=== PATIENT | male | born 1935 ===

== ENCOUNTER 2018-03-25 12:17 | Inpatient (IN) | payer MEDICARE ==
[~2018-03-25 12:17] MED LIST: Sodium Bicarbonate 7.5% (0.9 MEQ/ML) 50ML INJ IV ONE
[2018-03-25] MEDS ORDERED: Sodium Chloride 0.9% 1,000 ML IV STA ×2 (12:30→12:54)
[2018-03-25 12:48] LABS: ABG ALLEN TEST YES; ARTERIAL BLOOD GAS HCO3 10.2 mmol/L (21-28); ARTERIAL BLOOD GAS O2 SAT 78.4 % (95-98); ARTERIAL BLOOD GAS PCO2 60 mm/Hg (35-45); ARTERIAL BLOOD GAS PH 6.98 (7.35-7.45); ARTERIAL BLOOD GAS PO2 56 mm/Hg (80-100); ARTERIAL BLOOD GAS TCO2 15.9 mmol/L (22-28)
[2018-03-25 12:48] LABS: BASO % 0.8 % (0.0-2.0); EOS % 0.2 % (0.0-4.0); HEMOGLOBIN 9.1 g/dL (12.0-18.0); LYMPH % 40.1 % (20.0-40.0); MEAN CELL VOLUME 89.2 fl (80.0-94.0); MEAN CORPUSCULAR HEMOGLOBIN 26.2 pg (27.0-31.0); MEAN CORPUSCULAR HGB CONC 29.4 g/dL (33.0-37.0); MEAN PLATELET VOLUME 8.9 fl (7.2-11.7); MONO # 0.2 K/uL (0.0-0.8); MONO % 4.4 % (0.0-10.0); NEUT # 2.8 K/uL (1.8-7.0); NEUT % 54.5 % (50.0-75.0); NRBC % 0.2 % (0.0-0.0); RBC 3.47 Mil/uL (4.40-5.90); RED CELL DISTRIBUTION WIDTH 16.7 % (11.5-14.5); WHITE BLOOD COUNT 5.1 K/uL (4.8-10.8)
[2018-03-25] MEDS ORDERED: Piperacillin/Tazobact 3.375 gm Inj IVPB ONE (12:55)
--- NOTE | 2018-03-25 12:56 | ED PDOC ---
HPI: Cardiac Arrest Time Seen by Provider: 03/25/18 12:20 Chief Complaint (Nursing): Cardiac Arrest Chief Complaint (Provider): Cardiac Arrest History Per: EMS, Family () Reason For Code Blue: Full Arrest Circumstances: Brought To ED By EMS Arrest Witnessed By: Family () CPR Initiated Prior To MD Arrival?: Yes Down-Time Before ACLS: Mins (10) Treatment Initiated Prior To MD Arrival: CPR, Intubation, ACLS Medication Initiation Medications Given Prior To MD Arrival: Epinephrine Additional Complaint(s): 82 year old male with a history of hypertension, cataracts, dementia, cardiac disease and asthma presents to the ED via EMS after he went into sudden cardiac arrest while walking with his about 20 minutes prior to arrival. reports they went out for a walk when he collapsed and became unresponsive. He was down for at least 10 minutes before ACLS protocol was enacted by EMS. On arrival, EMS reports he was hypotensive and bradycardic, had two rounds of epinephrine and was intubated. pt had transient return of spontaneous circulation but then soon lost pulse. Patient was given another round of epi before arrival to the ED. Blood pressure on arrival was 84/60 and circulation was restored prior to arrival. PMD: Dr. Leonel Abel - Initial Findings Mentation: Unresponsive Pulse: Weak Past Medical History Reviewed: Historical Data, Nursing Documentation, Vital Signs - Medical History PMH: Asthma, CAD, HTN Other PMH: cataracts - Surgical History Other surgeries: unknown - Family History Family History: States: Unknown Family Hx - Living Arrangements Living Arrangements: With Family - Social History Ex-Smoker (has not smoked in the last 12 months): Yes (according to quite years ago) Alcohol: None Drugs: Denies - Home Medications Home Medications: Ambulatory Orders Medication Instructions Recorded Amiodarone [Cordarone] 200 mg PO DAILY 03/25/18 Clopidogrel [Plavix] 75 mg PO DAILY 03/25/18 Isosorbide Mononitrate [Imdur] 60 mg PO DAILY 03/25/18 Losartan [Cozaar] 100 mg PO DAILY 03/25/18 Memantine [Namenda] 10 mg PO Q12 03/25/18 Metoprolol Tartrate [Lopressor] 50 mg PO Q12 03/25/18 Oxybutynin [Ditropan Tab] 5 mg PO DAILY 11/08/18 PrednisoLONE 1% [Pred Forte 1% 1 drop LEFTEYE DAILY 03/25/18 Opht Susp] - Allergies Allergies/Adverse Reactions: Allergies Allergy/AdvReac Type Severity Reaction Status Date / Time Unobtainable Allergy Verified 03/25/18 12:19 Review of Systems ROS Statement: Except As Marked, All Systems Reviewed And Found Negative Review Of Systems: ROS cannot be obtained secondary to pt's inabilty to answer questions. Physical Exam - Reviewed Nursing Documentation Reviewed: Yes Vital Signs Reviewed: Yes - Physical Exam Appears: Positive for: No Acute Distress (intubated, with ABDULAZIZ machine off (had been on previously for compressions)) Head Exam: Positive for: ATRAUMATIC, NORMAL INSPECTION, NORMOCEPHALIC Skin: Positive for: Normal Color, Warm, Dry Eye Exam: Positive for: Normal appearance (surgical - prior cataracts). Negative for: Nystagmus ENT: Positive for: Normal ENT Inspection, Other (ETT in place at around 25 at lip) Cardiovascular/Chest: Positive for: Regular Rate, Rhythm Respiratory: Positive for: Normal Breath Sounds (mechanical, ETT in place, bilateral breath sounds). Negative for: Rales, Rhonchi, Stridor, Wheezing Gastrointestinal/Abdominal: Positive for: Normal Exam Extremity: Positive for: Other (pt not spontaneous movement. No response to verbal or painful stimuli.) Neurologic/Psych: Positive for: Other (pt not responsive ). Negative for: Alert, Oriented - Laboratory Results Result Diagrams: 03/25/18 12:40 03/25/18 12:40 - ECG ECG: Positive for: Interpreted By Me, Viewed By Me ECG Rhythm: Positive for: Nonspecific Changes (possible AF 99 bpm) Interpretation Of Abn EKG: Wide QRS complex, left axis deviation, ST depression V5-V6 - Radiology X-Ray: Interpreted by Me, Viewed By Me, Read By Radiologist X-Ray Interpretation: Infiltrates (possible) - Critical Care Total Time (In Min): 60 Documented Critical Care: Time excludes all time spent performint seperately billable procedures Medical Decision Making Medical Decision Making: s/p Cardiac arrest Three epinephrines were given in the field prior to arrival to the ED at 12:19 On arrival, pt placed on school lunch monitor, and accucheck and EKG done. Pt noted to have no pulse. CPR initiated with ABDULAZIZ machine. 12:20 --Compressions started. NS Bolus started. Accucheck 141. --Epinephrine and bicarb (1 amp) given 12:30 --;labs and Blood cx drawn --ABG 12:38 --Pulse at 48; blood pressure 72/45. atropine given. ivf given. central line initiated in R femoral under emergency conditions so no consent obtained. however verbal consent discussed with afterwards. she is agreeable to it. 12:41 --Atropine given 12:42 --Epinephrine given again as still no pulse; Rocha catheter placed with no urine output. 12:44 --Levophed drip 5 mcg/min (4mg in 250 mls) ordered --Head CT ordered 12:47 --Compressions continued, blood pressure 209/130, temperature 95.3 - bear huggers ordered 12:50 --Lactic acid is 14.4 and pH is 6.98. pt acidotic. Code Sepsis enacted. 12:53 --Vancomycin 1 gm in NS 250 ml and zosyn ordered --ABG 13:10 --Pulse elevated to normal range in 70-80s and blood pressure also elevated. awaiting cT head report. --Did not started Levophed drip because improving vitals. also ordered amiodarone given possible wide complex on EKG and noted that its one of patients regular meds. 13:25 --Anion gap is 20, sugar elevated, one dose insulin ordered. spoke w/ at bedside - she is aware of pts poor clinical status at this time. answered questions. she provided some of medical history as above. 13:54 CT Head FINDINGS: HEMORRHAGE: No intracranial hemorrhage. BRAIN: No intracranial mass. Moderate periventricular white matter ischemic change with patchy and confluent deep/subcortical white matter lucency consistent with microvascular white matter ischemic change. No evidence of acute infarct. 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 There is a lacunar infarct of the left thalamus/internal capsule. VENTRICLES: Unremarkable. No hydrocephalus. CALVARIUM: Unremarkable. PARANASAL SINUSES: Minimal chronic ethmoid and bilateral maxillary sinusitis. MASTOID AIR CELLS: Unremarkable as visualized. No inflammatory changes. OTHER FINDINGS: None. IMPRESSION: No intracranial mass, hemorrhage or evidence of acute infarct. 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 Chronic white matter ischemic change. 13:30 Chest x-ray FINDINGS: LUNGS: Diffuse opacity in the right lung common nonspecific. Infectious versus atypical pulmonary edema. No definite left-sided infiltrate. PLEURA: No significant pleural effusion identified, no pneumothorax apparent. CARDIOVASCULAR: Normal heart size. Endotracheal tube noted with tip approximately 1.6 cm above the tracheal wilbur. Consideration should be given to repositioning the endotracheal tube tip proximally. No atherosclerotic calcification of the thoracic aorta. OSSEOUS STRUCTURES: No significant abnormalities. VISUALIZED UPPER ABDOMEN: Normal. OTHER FINDINGS: None. IMPRESSION: Diffuse right-sided pulmonary opacity, nonspecific. Possible pneumonia. Endotracheal tube tip approximately 1.6 cm above the tracheal wilbur. Consideration should be given to more proximal positioning of the ET tube tip. respiratory called to adjust the ETT. discussed case with intensivits Dr. Romano accepts case to icu also discussed with DR Carrion who covers dr fisher patients, who accepts patient Scribe Attestation: Documented by Robyn Palumbo acting as a scribe for Francois Pride MD Provider Scribe Attestation: All medical record entries made by the Scribe were at my direction and personally dictated by me. I have reviewed the chart and agree that the record accurately reflects my personal performance of the history, physical exam, medical decision making, and the department course for this patient. I have also personally directed, reviewed, and agree with the discharge instructions and disposition. Disposition - Clinical Impression Clinical Impression: Cardiac arrest - Patient ED Disposition Is Patient to be Admitted: Yes - Disposition Disposition Time: 13:30 Condition: SERIOUS
[2018-03-25] MEDS ORDERED: Vancomycin 1 g Inj ONE (12:57)
[2018-03-25 12:58] LABS: CALCIUM 7.8 mg/dL (8.4-10.2)
[2018-03-25 13:09] LABS: TROPONIN I 0.045 ng/mL (0.00-0.120)
[2018-03-25] MEDS ORDERED: Amiodarone 900 MG in Dextrose 5% In Water 500 ML IV SCH (13:15)
[2018-03-25] MEDS ORDERED: Insulin Regular 100 units/ml SC STA (13:23)
[2018-03-25] MEDS ORDERED: Amiodarone 450 MG in Sodium Chloride 0.9% 250 ML IV SCH (13:30)
--- NOTE | 2018-03-25 13:35 | RAD ---
Date of service: 03/25/2018 HISTORY: cough COMPARISON: No prior. FINDINGS: LUNGS: Diffuse opacity in the right lung common nonspecific. Infectious versus atypical pulmonary edema. No definite left-sided infiltrate. PLEURA: No significant pleural effusion identified, no pneumothorax apparent. CARDIOVASCULAR: Normal heart size. Endotracheal tube noted with tip approximately 1.6 cm above the tracheal wilbur. Consideration should be given to repositioning the endotracheal tube tip proximally. No atherosclerotic calcification of the thoracic aorta. OSSEOUS STRUCTURES: No significant abnormalities. VISUALIZED UPPER ABDOMEN: Normal. OTHER FINDINGS: None. IMPRESSION: Diffuse right-sided pulmonary opacity, nonspecific. Possible pneumonia. Endotracheal tube tip approximately 1.6 cm above the tracheal wilbur. Consideration should be given to more proximal positioning of the ET tube tip.
[2018-03-25 13:55] LABS: INR 1.5; PROTHROMBIN TIME 17.1 Seconds (9.8-13.1)
[2018-03-25 13:58] LABS: PARTIAL THROMBOPLASTIN TIME 29.8 Seconds (25.6-37.1)
--- NOTE | 2018-03-25 13:58 | CT ---
Date of service: 03/25/2018 PROCEDURE: CT HEAD WITHOUT CONTRAST. HISTORY: r/o bleed COMPARISON: None available. TECHNIQUE: Axial computed tomography images were obtained through the head/brain without intravenous contrast. Radiation dose: Total exam DLP = 1025.82 mGy-cm. This CT exam was performed using one or more of the following dose reduction techniques: Automated exposure control, adjustment of the mA and/or kV according to patient size, and/or use of iterative reconstruction technique. FINDINGS: HEMORRHAGE: No intracranial hemorrhage. BRAIN: No intracranial mass. Moderate periventricular white matter ischemic change with patchy and confluent deep/subcortical white matter lucency consistent with microvascular white matter ischemic change. No evidence of acute infarct. 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 There is a lacunar infarct of the left thalamus/internal capsule. VENTRICLES: Unremarkable. No hydrocephalus. CALVARIUM: Unremarkable. PARANASAL SINUSES: Minimal chronic ethmoid and bilateral maxillary sinusitis. MASTOID AIR CELLS: Unremarkable as visualized. No inflammatory changes. OTHER FINDINGS: None. IMPRESSION: No intracranial mass, hemorrhage or evidence of acute infarct. 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 Chronic white matter ischemic change.
[2018-03-25 14:35] LABS: SQUAMOUS EPITHIAL 5 /hpf (0-5)
[2018-03-25 14:43] LABS: URINE BILIRUBIN NEGATIVE (NEGATIVE); URINE BLOOD LARGE (NEGATIVE); URINE CLARITY CLOUDY (Clear); URINE COLOR AMBER (YELLOW); URINE GLUCOSE (UA) NEG (Normal); URINE LEUKOCYTE ESTERASE NEG Leu/uL (Negative); URINE PROTEIN 100 mg/dL (NEGATIVE); URINE UROBILINOGEN 0.2-1.0 mg/dL (0.2-1.0)
--- NOTE | 2018-03-25 14:46 | PCM.PROC ---
Procedures Attestation:: I certify that I have explained the specified Operation(s) or Procedure(s), risks, benefits and reasonable alternatives to the Patient and/or other person responsible. The opportunity was given to ask questions and all questions answered - Central Line Placement Right Femoral Triple Lumen Catheter Aseptic technique was employed throughout the procedure: Hand Hygiene done prior to procedure, Full sterile barriers (mask, hair cover, sterile gown, sterile gloves), Full body sterile drape, Chloraprep Antiseptic: 2 minute prep for Femoral CVP Time Out Performed: No Pt. Placed on Pulse Ox Monitor: Yes Central Line Prep: Povidone-Iodine 1% Ultrasound Used for Placement: No Central Line Lumen Inserted: triple Central Line Length: 20 cm Post Procedure: Sutured in Place, Good Blood Return, All Ports Aspirated, Flushed, Capped, Sterile Dressing Applied Secured by: Suture Post procedure dressing: Clear vapor permeable, Chlorhexidine disc (Biopatch) Post Procedure X-Ray: Yes Patient Tolerated Procedure: No Complications Immediate Complications: None Additional Comments: right femoral central line placed in emergent conditions during cardiac arrest for hypotension/bradycardia.
--- NOTE | 2018-03-25 14:56 | CP.CCUPN ---
CCU Subjective - Physician Review Subjective (Free Text): Discussed with ER MD. No history / HPI obtainable from patient- intubated and comatose. 82M with h/o HTN, asthma, Dementia, walking with , sat down, then sudden fall to the ground and was unresponsive. Down time approx. 10 min, EMS called, states down time may have been longer at up to 20 minutes; intubated as part of resuscitation attempts. Multiple doses of Epinephrine given before restorationist of a bradycardic rhythm. Hypotensive on arrival to ER, no palpable pulses noted and resuscitation resumed, more Epi given, bicarbonate given, and ROSC achieved, placed briefly on Norepi drip, later stopped due to stable self- MAP maintenance. Two liter IVF challenge given as well for oliguria, empiric doses of Vanco / Zosyn given. He is comatose post-resuscitation. Code Sepsis called for elevated lactate. Upon arrival to ICU, facial myoclonic movements observed with bilat eye opening upon any stimulation. Other vitals and I/O's reviewed. T 95F Rectally, 180/84, 68, breathing 18/18 on AC mode, no vent triggering noted. ROS: No other pertinent negs or positives on 10+ system review obtainable due to coma and intubated state. Allergies: Unknown Home Meds: Amiodarone PMSFH: All other Nursing and physician documentation reviewed to date; no new p ertinent info noted relevant to current medical problems. EXAM- HEENT: no icterus, no gaze preference, Pupils 2 mm bilat and not reactive, no gag or carinal reflex. Orally intubated #7.5mm ETT in place. NECK: No JVD visible, supple, carotids equal upstroke bilat/no bruit CHEST: bilateral rhonchi all jarrell, no wheezes audible HEART: regular, distant tachy S1S2, no rub, + 2/6 apical systolic m. ABD: soft, no focal tenderness, no guarding, no organomegaly, BS hypoactive. EXT: +3 edema, no calf tenderness or palpable cords, distal pulses intact and symmetrical. NEURO: flaccid x 4 extremities, GCS = 3T, opens eyes to pain stimuli and minimal withdrawal of hands to pain. No other purposeful interaction. SKIN: no rashes, cool and dry LABS: WBC= 5.1 HGB= 9.1 PLTs= 153K Na= 143 K= 3.8 LG=315 HCO3= 13 BUN/Cr= 27/2.0 BS= 141 6.98 / 60/ 56 Lactate= 14.4 CXR: ETT tip position near wilbur, R lung haziness worse than L, possible left hilar infiltrate (my interp). CT Brain result reviewed; no acute pathology. EKG: Sinus 99/min, LAD, T inversions I, L, ST depressions V4-6 (my interp). IMPRESSION / MAJOR PROBLEMS NOW: 1. S/p Resuscitation from Cardiac Arrest, on MV support: r/o AMI 2. Anoxic Encephalopathy post-resuscitation 3. Azotemia / Dehydration, r/o CKD, ATN 4. No clinical evidence of any Severe Sepsis causing current level of Lactic Acidosis. PLAN: 1. Given prolonged downtime, not a candidate for therapeutic hypothermia. 2. Check repeat ABG, serial Lactates till normalized. 3. ECHO, serial Trops, EKGs. 4. Neurochecks, Seizure precautions, consider formal Neurology eval. Repeat CT Brain imaging after 24H. 5. IVF challenges if still oliguric. Urine Na, serial BUN/Cr. 6. Empric abx coverage started in ER; coverage for possible Aspiration pna. 7. No Advance Directives known, continue full Code resuscitation status. 8. Notify [employer] given low GCS.
--- NOTE | 2018-03-25 15:04 | PCM.PROC ---
Procedures Attestation:: I certify that I have explained the specified Operation(s) or Procedure(s), risks, benefits and reasonable alternatives to the Patient and/or other person responsible. The opportunity was given to ask questions and all questions answered - Intubation Time Out Performed: Yes Sedative: None Assist Device Used: Bougie ET Tube Size: 8.0 ET Tube Secured at Depth: 21 ET Tube Secured Locarion: Teeth ET Tube Placement Confirmation: Breath Sounds Equal Bilaterally, No Breath Sounds Over Epigastrum, Confirmation w/Capnometry Patient Tolerated Procedure: Well Procedure Immediate Complications: None Additional comments: Patient required re-intubation due to loss of exhaled TV and expelled air coming from the mouth. SPo2 at 90% on 100% oxygen. Additional air placed via ETT cuff balloon without effect. Using Bougie device, existing 7.5mm ETT removed and new #8.0mm ETT with subglottic suction capability passed via Bougie into position and secured at 21 cm mike at the teeth after confirming position with bilat BS on auscultation and ETCO2 color change. Patient connected back to MV and full TV of 500ml retrurned via exhalation, SPo2 at 100%. ABG obtained.
--- NOTE | 2018-03-25 16:20 | CARD ---
APPROVED REPORT Date of service: 03/25/2018 EKG Measurement Heart [id number] <Conclusion> Normal sinus rhythm. Baseline artifact. Left axis deviation Nonspecific intraventricular block ST depression, consider lateral ischemia Abnormal ECG
[2018-03-25] MEDS ORDERED: Influenza Vaccine (5 YR UP)/PF 60 MCG/0.5 ML SYR IM ONE (17:00)
[2018-03-25] MEDS ORDERED: Pneumococcal 23-Valent Vaccine IM ONE (17:00)
[2018-03-25 21:08] LABS: ABG ALLEN TEST YES; ARTERIAL BLOOD GAS HCO3 24.1 mmol/L (21-28); ARTERIAL BLOOD GAS HEMOGLOBIN 11.3 g/dL (11.7-17.4); ARTERIAL BLOOD GAS O2 CAPACITY 15.6 mL/dL (16-24); ARTERIAL BLOOD GAS O2 CONTENT 15.6 ML/dL (15-23); ARTERIAL BLOOD GAS O2 SAT 99.9 % (95-98); ARTERIAL BLOOD GAS PCO2 29 mm/Hg (35-45); ARTERIAL BLOOD GAS PH 7.48 (7.35-7.45); ARTERIAL BLOOD GAS PO2 132 mm/Hg (80-100); ARTERIAL BLOOD GAS TCO2 22.5 mmol/L (22-28)
[2018-03-25 21:25] LABS: ABG ALLEN TEST YES; ARTERIAL BLOOD GAS HCO3 18.3 mmol/L (21-28); ARTERIAL BLOOD GAS O2 SAT 98.5 % (95-98); ARTERIAL BLOOD GAS PCO2 42 mm/Hg (35-45); ARTERIAL BLOOD GAS PH 7.25 (7.35-7.45); ARTERIAL BLOOD GAS PO2 94 mm/Hg (80-100); ARTERIAL BLOOD GAS TCO2 19.7 mmol/L (22-28)
[2018-03-25] MEDS: Acetaminophen 650mg/20.3ml solution UD PO PRN (22:11)
[2018-03-26 05:30] LABS: BASO % 0.1 % (0.0-2.0); HEMOGLOBIN 10.6 g/dL (12.0-18.0); LYMPH # 0.6 K/uL (1.0-4.3); LYMPH % 7.4 % (20.0-40.0); MEAN CELL VOLUME 83.1 fl (80.0-94.0); MEAN CORPUSCULAR HEMOGLOBIN 26.5 pg (27.0-31.0); MEAN CORPUSCULAR HGB CONC 31.9 g/dL (33.0-37.0); MEAN PLATELET VOLUME 8.7 fl (7.2-11.7); MONO # 0.7 K/uL (0.0-0.8); NEUT % 84.5 % (50.0-75.0); NRBC % 0.2 % (0.0-0.0); PLATELET COUNT 180 K/uL (130-400); RBC 3.98 Mil/uL (4.40-5.90); RED CELL DISTRIBUTION WIDTH 15.4 % (11.5-14.5); WHITE BLOOD COUNT 8.3 K/uL (4.8-10.8)
[2018-03-26 05:34] LABS: ABG ALLEN TEST YES; ARTERIAL BLOOD GAS O2 SAT 100.3 % (95-98); ARTERIAL BLOOD GAS PCO2 31 mm/Hg (35-45); ARTERIAL BLOOD GAS PH 7.46 (7.35-7.45); ARTERIAL BLOOD GAS PO2 239 mm/Hg (80-100)
[2018-03-26 05:39] LABS: INR 1.4; PROTHROMBIN TIME 15.5 Seconds (9.8-13.1)
[2018-03-26 05:41] LABS: ALBUMIN 3.4 g/dL (3.5-5.0); CALCIUM 8.2 mg/dL (8.4-10.2)
[2018-03-26 05:42] LABS: PARTIAL THROMBOPLASTIN TIME 31.4 Seconds (25.6-37.1)
[2018-03-26 05:51] LABS: TROPONIN I 0.487 ng/mL (0.00-0.120)
[2018-03-26 06:16] LABS: BANDS 2 % (0-2); LYMPHOCYTE 6 % (20-50); MONOCYTE 3 % (0-10); NEUTROPHIL 87 % (42-75); PLATELET ESTIMATE NORMAL (NORMAL); REACTIVE LYMPHOCYTES 2 % (0-0); TOTAL CELLS COUNTED 100
[2018-03-26 06:17] LABS: HYPOCHROMIC SLIGHT; OVALOCYTES SLIGHT; POIKILOCYTOSIS SLIGHT
--- NOTE | 2018-03-26 08:17 | CP.PCM.HP ---
<Jose Alejandro Watson - Last Filed: 03/26/18 08:02> History of Present Illness - History of Present Illness History of Present Illness: 82 y/o M with a PMHx of HTN, dementia, CAD and asthma was admitted for evaluation and management of S/P resuscitation from cardiac arrest. Pt was walking outside with , then he collapse and became unresponsive. ACLS was started ~10-20 minutes after episode by EMS and then brought to ED. At ED, multiple doses of epinephrine, atropine, IV fluids and bicarbonate were given. Central IV line was obtained and pt was intubated, once ROSC and stabilized pt was transferred to ICU. --Today, pt was seen and examined by bedside with Dr Carrion. Pt is intubated, not responsive to verbal commands or tactile stimulation, seems to respond to pain, right eye covered, left eye turned upward. PMD: Dr. Leonel Abel --> Head CT: with NO intra-cranial mass, hemorrhage or acute infarct. --> CXR: R pulmonary opacity, possibly pneumonia. --> EKG: Abnormal, possibly lateral infarct. Present on Admission - Present on Admission Any Indicators Present on Admission: No Review of Systems - Review of Systems Systems not reviewed;Unavailable: Respiratory Distress, Intubated Past Patient History - Past Social History Smoking Status: Former Smoker - CARDIAC Hx Hypertension: Yes - PULMONARY Hx Asthma: Yes - NEUROLOGICAL Hx Neurological Disorder: Yes - HEENT Hx HEENT Problems: No - RENAL Hx Chronic Kidney Disease: No - ENDOCRINE/METABOLIC Hx Endocrine Disorders: No - HEMATOLOGICAL/ONCOLOGICAL Hx Blood Disorders: No Hx AIDS: No Hx Human Immunodeficiency Virus (HIV): No - INTEGUMENTARY Hx Dermatological Problems: No - MUSCULOSKELETAL/RHEUMATOLOGICAL Hx Musculoskeletal Disorders: No Hx Falls: No - GASTROINTESTINAL Hx Gastritis: Yes - GENITOURINARY/GYNECOLOGICAL Hx Genitourinary Disorders: No - PSYCHIATRIC Hx Psychophysiologic Disorder: No Hx Substance Use: No - SURGICAL HISTORY Hx Surgeries: No - ANESTHESIA Hx Anesthesia: No Meds Allergies/Adverse Reactions: Allergies Allergy/AdvReac Type Severity Reaction Status Date / Time No Known Allergies Allergy Verified 03/25/18 15:10 Physical Exam - Constitutional Appears: Chronically Ill - Head Exam Head Exam: ATRAUMATIC - Eye Exam Eye Exam: absent: EOMI - ENT Exam ENT Exam: Mucous Membranes Dry - Respiratory Exam Additional comments: intubated. - Cardiovascular Exam Cardiovascular Exam: +S1, +S2 - GI/Abdominal Exam GI & Abdominal Exam: Soft. absent: Distended, Tenderness - Neurological Exam Neurological exam: Altered Results - Vital Signs Recent Vital Signs: Last Vital Signs Temp 100.4 F H 03/26/18 07:57 Pulse 72 03/26/18 07:57 Resp 18 03/26/18 07:57 BP 151/72 H 03/26/18 07:57 Pulse Ox 100 03/26/18 07:57 - Labs Result Diagrams: 03/26/18 04:40 03/26/18 04:40 Labs: Laboratory Results - last 24 hr 03/25/18 03/25/18 03/25/18 12:21 12:40 12:40 WBC 5.1 RBC 3.47 L Hgb 9.1 L Hct 31.0 L MCV 89.2 MCH 26.2 L MCHC 29.4 L RDW 16.7 H Plt Count 153 MPV 8.9 Neut % (Auto) 54.5 Lymph % (Auto) 40.1 H Bailey % (Auto) 4.4 Eos % (Auto) 0.2 Baso % (Auto) 0.8 Neut # (Auto) 2.8 Lymph # (Auto) 2.0 Bailey # (Auto) 0.2 Eos # (Auto) 0.0 Baso # (Auto) 0.0 Neutrophils % (Manual) Band Neutrophils % Lymphocytes % (Manual) Reactive Lymphs % Monocytes % (Manual) Platelet Estimate Hypochromasia (manual) Poikilocytosis (manual Ovalocytes PT INR APTT pCO2 pO2 HCO3 ABG pH ABG Total CO2 ABG O2 Saturation ABG O2 Content ABG Base Excess ABG Hemoglobin ABG Carboxyhemoglobin POC ABG HHb (Measured) ABG Methemoglobin ABG O2 Capacity Shahram Test ABG Potassium A-a O2 Difference Hgb O2 Saturation Glucose Lactate Vent Mode Mechanical Rate FiO2 Tidal Volume PEEP Blood Gas Comments Crit Value Called To Crit Value Called By Crit Value Read Back Blood Gas Notified Time Sodium 143 Potassium 3.8 Chloride 110 H Carbon Dioxide 13 L Anion Gap 24 H BUN 27 H Creatinine 2.0 H Est GFR ( Amer) 39 Est GFR (Non-Af Amer) 32 POC Glucose (mg/dL) 141 H Random Glucose 237 H Lactic Acid Calcium 7.8 L Phosphorus Magnesium Total Bilirubin 0.8 AST 168 H ALT 74 H Alkaline Phosphatase 200 H Troponin I 0.0450 Total Protein 6.0 L Albumin 3.0 L Globulin 2.9 Albumin/Globulin Ratio 1.0 Arterial Blood Potassium Urine Color Urine Clarity Urine pH Ur Specific [place] Urine Protein Urine Glucose (UA) Urine Ketones Urine Blood Urine Nitrate Urine Bilirubin Urine Urobilinogen Ur Leukocyte Esterase Urine RBC (Auto) Urine Microscopic WBC Ur Squamous Epith Cells Hyaline Casts Blood Type Antibody Screen BBK History Checked 03/25/18 03/25/18 03/25/18 12:44 13:33 13:40 WBC RBC Hgb Hct MCV MCH MCHC RDW Plt Count MPV Neut % (Auto) Lymph % (Auto) Bailey % (Auto) Eos % (Auto) Baso % (Auto) Neut # (Auto) Lymph # (Auto) Bailey # (Auto) Eos # (Auto) Baso # (Auto) Neutrophils % (Manual) Band Neutrophils % Lymphocytes % (Manual) Reactive Lymphs % Monocytes % (Manual) Platelet Estimate Hypochromasia (manual) Poikilocytosis (manual Ovalocytes PT 17.1 H INR 1.5 APTT 29.8 pCO2 60 H pO2 56 L HCO3 10.2 L ABG pH 6.98 L* ABG Total CO2 15.9 L ABG O2 Saturation 78.4 L ABG O2 Content ABG Base Excess -17.9 L ABG Hemoglobin ABG Carboxyhemoglobin POC ABG HHb (Measured) ABG Methemoglobin ABG O2 Capacity Shahram Test Yes ABG Potassium 3.7 A-a O2 Difference Hgb O2 Saturation Glucose 249 H Lactate 14.4 H* Vent Mode Mechanical Rate FiO2 100.0 Tidal Volume PEEP Blood Gas Comments Crit Value Called To Francois tavarez md Crit Value Called By Pn Crit Value Read Back Y Blood Gas Notified Time 1249 Sodium 141.0 Potassium Chloride 105.0 Carbon Dioxide Anion Gap BUN Creatinine Est GFR ( Amer) Est GFR (Non-Af Amer) POC Glucose (mg/dL) 176 H Random Glucose Lactic Acid Calcium Phosphorus Magnesium Total Bilirubin AST ALT Alkaline Phosphatase Troponin I Total Protein Albumin Globulin Albumin/Globulin Ratio Arterial Blood Potassium 3.7 Urine Color Urine Clarity Urine pH Ur Specific [place] Urine Protein Urine Glucose (UA) Urine Ketones Urine Blood Urine Nitrate Urine Bilirubin Urine Urobilinogen Ur Leukocyte Esterase Urine RBC (Auto) Urine Microscopic WBC Ur Squamous Epith Cells Hyaline Casts Blood Type Antibody Screen BBK History Checked 03/25/18 03/25/18 03/25/18 14:00 14:50 21:05 WBC RBC Hgb Hct MCV MCH MCHC RDW Plt Count MPV Neut % (Auto) Lymph % (Auto) Bailey % (Auto) Eos % (Auto) Baso % (Auto) Neut # (Auto) Lymph # (Auto) Bailey # (Auto) Eos # (Auto) Baso # (Auto) Neutrophils % (Manual) Band Neutrophils % Lymphocytes % (Manual) Reactive Lymphs % Monocytes % (Manual) Platelet Estimate Hypochromasia (manual) Poikilocytosis (manual Ovalocytes PT INR APTT pCO2 42 29 L pO2 94 132 H HCO3 18.3 L 24.1 ABG pH 7.25 L 7.48 H ABG Total CO2 19.7 L 22.5 ABG O2 Saturation 98.5 H 99.9 H ABG O2 Content 15.6 ABG Base Excess -8.4 L -1.1 ABG Hemoglobin 11.3 L ABG Carboxyhemoglobin 1.9 H POC ABG HHb (Measured) 0.1 ABG Methemoglobin 1.4 ABG O2 Capacity 15.6 L Shahram Test Yes Yes ABG Potassium 3.8 A-a O2 Difference 567.0 545.0 Hgb O2 Saturation 96.7 Glucose 183 H Lactate 6.0 H* Vent Mode Prvc/ac A/c Mechanical Rate 18 18 FiO2 100.0 100.0 Tidal Volume 500 500 PEEP 5 5 Blood Gas Comments Lac=6.0 Crit Value Called To ying Gonzalez Crit Value Called By 22 Crit Value Read Back Y Blood Gas Notified Time 1455 Sodium 141.0 Potassium Chloride 107.0 Carbon Dioxide Anion Gap BUN Creatinine Est GFR ( Amer) Est GFR (Non-Af Amer) POC Glucose (mg/dL) Random Glucose Lactic Acid Calcium Phosphorus Magnesium Total Bilirubin AST ALT Alkaline Phosphatase Troponin I Total Protein Albumin Globulin Albumin/Globulin Ratio Arterial Blood Potassium 3.8 Urine Color Mona Urine Clarity Cloudy Urine pH 6.0 Ur Specific [place] 1.021 Urine Protein 100 Urine Glucose (UA) Neg Urine Ketones Negative Urine Blood Large Urine Nitrate Negative Urine Bilirubin Negative Urine Urobilinogen 0.2-1.0 Ur Leukocyte Esterase Neg Urine RBC (Auto) 1560 H Urine Microscopic WBC 122 H Ur Squamous Epith Cells 5 Hyaline Casts 11-20 H Blood Type Antibody Screen BBK History Checked 03/26/18 03/26/18 03/26/18 04:00 04:40 04:40 WBC 8.3 D RBC 3.98 L Hgb 10.6 L Hct 33.1 L MCV 83.1 D MCH 26.5 L MCHC 31.9 L RDW 15.4 H Plt Count 180 MPV 8.7 Neut % (Auto) 84.5 H Lymph % (Auto) 7.4 L Bailey % (Auto) 8.0 Eos % (Auto) 0.0 Baso % (Auto) 0.1 Neut # (Auto) 7.0 Lymph # (Auto) 0.6 L Bailey # (Auto) 0.7 Eos # (Auto) 0.0 Baso # (Auto) 0.0 Neutrophils % (Manual) 87 H Band Neutrophils % 2 Lymphocytes % (Manual) 6 L Reactive Lymphs % 2 H Monocytes % (Manual) 3 Platelet Estimate Normal Hypochromasia (manual) Slight Poikilocytosis (manual Slight Ovalocytes Slight PT 15.5 H INR 1.4 APTT 31.4 pCO2 31 L pO2 239 H HCO3 24.0 ABG pH 7.46 H ABG Total CO2 23.0 ABG O2 Saturation 100.3 H ABG O2 Content ABG Base Excess -1.2 ABG Hemoglobin ABG Carboxyhemoglobin POC ABG HHb (Measured) ABG Methemoglobin ABG O2 Capacity Shahram Test Yes ABG Potassium 3.8 A-a O2 Difference 435.0 Hgb O2 Saturation Glucose 162 H Lactate 1.6 Vent Mode A/c Mechanical Rate 18 FiO2 100.0 Tidal Volume 500 PEEP 5 Blood Gas Comments Crit Value Called To Crit Value Called By Crit Value Read Back Blood Gas Notified Time Sodium 139.0 Potassium Chloride 109.0 H Carbon Dioxide Anion Gap BUN Creatinine Est GFR ( Amer) Est GFR (Non-Af Amer) POC Glucose (mg/dL) Random Glucose Lactic Acid Calcium Phosphorus Magnesium Total Bilirubin AST ALT Alkaline Phosphatase Troponin I Total Protein Albumin Globulin Albumin/Globulin Ratio Arterial Blood Potassium 3.8 Urine Color Urine Clarity Urine pH Ur Specific [place] Urine Protein Urine Glucose (UA) Urine Ketones Urine Blood Urine Nitrate Urine Bilirubin Urine Urobilinogen Ur Leukocyte Esterase Urine RBC (Auto) Urine Microscopic WBC Ur Squamous Epith Cells Hyaline Casts Blood Type Antibody Screen BBK History Checked 03/26/18 03/26/18 03/26/18 04:40 04:40 04:40 WBC RBC Hgb Hct MCV MCH MCHC RDW Plt Count MPV Neut % (Auto) Lymph % (Auto) Bailey % (Auto) Eos % (Auto) Baso % (Auto) Neut # (Auto) Lymph # (Auto) Bailey # (Auto) Eos # (Auto) Baso # (Auto) Neutrophils % (Manual) Band Neutrophils % Lymphocytes % (Manual) Reactive Lymphs % Monocytes % (Manual) Platelet Estimate Hypochromasia (manual) Poikilocytosis (manual Ovalocytes PT INR APTT pCO2 pO2 HCO3 ABG pH ABG Total CO2 ABG O2 Saturation ABG O2 Content ABG Base Excess ABG Hemoglobin ABG Carboxyhemoglobin POC ABG HHb (Measured) ABG Methemoglobin ABG O2 Capacity Shahram Test ABG Potassium A-a O2 Difference Hgb O2 Saturation Glucose Lactate Vent Mode Mechanical Rate FiO2 Tidal Volume PEEP Blood Gas Comments Crit Value Called To Crit Value Called By Crit Value Read Back Blood Gas Notified Time Sodium 143 Potassium 4.1 Chloride 111 H Carbon Dioxide 23 Anion Gap 13 BUN 33 H Creatinine 2.5 H Est GFR ( Amer) 30 Est GFR (Non-Af Amer) 25 POC Glucose (mg/dL) Random Glucose 157 H Lactic Acid 2.0 Calcium 8.2 L Phosphorus 4.2 Magnesium 1.9 Total Bilirubin 1.3 AST 185 H ALT 117 H D Alkaline Phosphatase 268 H D Troponin I 0.4870 H* Total Protein 6.9 Albumin 3.4 L Globulin 3.5 Albumin/Globulin Ratio 1.0 Arterial Blood Potassium Urine Color Urine Clarity Urine pH Ur Specific [place] Urine Protein Urine Glucose (UA) Urine Ketones Urine Blood Urine Nitrate Urine Bilirubin Urine Urobilinogen Ur Leukocyte Esterase Urine RBC (Auto) Urine Microscopic WBC Ur Squamous Epith Cells Hyaline Casts Blood Type A POSITIVE Antibody Screen Negative BBK History Checked No verified bt Assessment & Plan - Assessment and Plan (Free Text) Assessment: 82 y/o M with a PMHx of HTN, dementia, CAD and asthma was admitted for evaluation and management of S/P resuscitation from cardiac arrest and encephalopathy. --> Head CT: with NO intra-cranial mass, hemorrhage or acute infarct. --> CXR: R pulmonary opacity, possibly pneumonia. --> EKG: Abnormal, possibly lateral infarct. PLAN: --Unresponsive (respond to pain stimuli only) --Intubated, continuous cardiac and BP monitoring --Admit to ICU --F/U ABG, lactate, troponin serum levels; EKG, echocardiogram. --Repeat Head CT after 24hrs. --On IV Zosyn as empiric treatment --Continue management as ordered. Case discussed with Dr Carrion who agrees with the above BETITO Terrell PGY-2 - Date & Time Date: 03/26/18 Time: 08:25 <Mario Carrion - Last Filed: 03/27/18 06:52> Results - Vital Signs Recent Vital Signs: Last Vital Signs Temp 99.6 F 03/27/18 04:00 Pulse 79 03/27/18 06:49 Resp 25 H 03/27/18 06:49 BP 183/91 H 03/27/18 06:00 Pulse Ox 100 03/27/18 06:49 - Labs Result Diagrams: 03/27/18 05:15 03/26/18 04:40 Labs: Laboratory Results - last 24 hr 03/26/18 03/27/18 03/27/18 08:49 04:10 05:15 WBC 8.7 RBC 4.12 L Hgb 10.7 L Hct 34.2 L MCV 82.9 MCH 26.0 L MCHC 31.4 L RDW 16.1 H Plt Count 162 pCO2 29 L pO2 212 H HCO3 25.6 ABG pH 7.51 H ABG Total CO2 24.0 ABG O2 Saturation 100.0 H ABG O2 Content 15.6 ABG Base Excess 0.8 ABG Hemoglobin 11.1 L ABG Carboxyhemoglobin 1.6 H POC ABG HHb (Measured) 0.0 ABG Methemoglobin 1.3 ABG O2 Capacity 15.6 L Shahram Test Yes A-a O2 Difference 180.0 Hgb O2 Saturation 97.1 Vent Mode A/c Mechanical Rate 14 FiO2 60.0 Tidal Volume 450 PEEP 5 Blood Type Confirm A POSITIVE Assessment & Plan - Assessment and Plan (Free Text) Assessment: Patient was personally seen and examined by me in rounds with residents. Available labs and diagnostic data reviewed. Case, Patient's condition and management plan discussed with residents in rounds. Agree with resident's progress note. Plan: As ordered.
[2018-03-26] MEDS: Acetaminophen 650mg/20.3ml solution UD PO PRN (08:20)
--- NOTE | 2018-03-26 10:44 | CARD ---
APPROVED REPORT Date of service: 03/26/2018 EKG Measurement Heart [id number] <Conclusion> Normal sinus rhythm with sinus arrhythmia Minimal voltage criteria for LVH, may be normal variant ST & T wave abnormality, consider lateral ischemia Abnormal ECG
--- NOTE | 2018-03-26 11:35 | RAD ---
Date of service: 03/26/2018 HISTORY: intubated COMPARISON: 03/25/2018 FINDINGS: LUNGS: Extensive bilateral diffuse pulmonary opacity, with some apparent worsening particularly on the left side when compared to the prior examination. Pulmonary edema versus bilateral pneumonia. PLEURA: No significant pleural effusion identified, no pneumothorax apparent. CARDIOVASCULAR: There is atherosclerotic calcification of the thoracic aorta. Normal heart size. ET tube grossly unchanged. Nasogastric tube now seen extending to the left upper quadrant of the abdomen. No pulmonary vascular congestion. OSSEOUS STRUCTURES: No significant abnormalities. VISUALIZED UPPER ABDOMEN: Normal. OTHER FINDINGS: None. IMPRESSION: Worsening bilateral diffuse alveolar infiltrate. New nasogastric tube.
--- NOTE | 2018-03-26 13:14 | CARD ---
APPROVED REPORT Date of service: 03/26/2018 EXAM: Two-dimensional and M-mode echocardiogram with Doppler and color Doppler. Other Information Quality : GoodRhythm : NSR INDICATION S/P CARDIAC ARREST 2D DIMENSIONS IVSd1.54 (0.7-1.1cm)LVDd4.49 (3.9-5.9cm) LVOT Diameter1.90 (1.8-2.4cm)PWd1.22 (0.7-1.1cm) IVSs2.24 (0.8-1.2cm)LA Muhprd84 (18-58mL) LVDs3.07 (2.5-4.0cm)FS (%) 31.5 % PWs1.55 (0.8-1.2cm)SV38.00 ml LVEF (%)36.2 (>50%)CO2.45 L/min M-Mode DIMENSIONS Left Atrium (MM)3.71 (2.5-4.0cm)IVSd1.47 (0.7-1.1cm) Aortic Root3.41 (2.2-3.7cm)LVDd5.44 (4.0-5.6cm) Aortic Cusp Exc.1.47 (1.5-2.0cm)PWd0.79 (0.7-1.1cm) IVSs1.47 cmFS (%) 33 % LVDs3.65 (2.0-3.8cm)PWs1.59 cm Aortic Valve AoV Peak Kzcloyml593.1cm/sAoV VTI44.9cmAO Peak GR.22mmHg LVOT Peak Wrnbsjnu67.3cm/sLVOT VTI16.67cmAO Mean GR.14mmHg CORDELIA (VMAX)0.03jv0OLZ (VTI)0.60cm2 Mitral Valve MV E Mfuevhnt19.1cm/sMV DECEL [id number] A Tgdtctuo48.1cm/s MV KMC60tfW/A ratio1.0MVA (PHT)2.42cm2 TDI Lateral E' Peak V9.29cm/sMedial E' Peak V4.07cm/sE/Lateral E'8.3 E/Medial E'18.9 Pulmonary Valve PV Peak Ufwyujqh703.5cm/s LEFT VENTRICLE The left ventricle is normal size. There is mild concentric left ventricular hypertrophy. The left ventricular systolic function is mildly impaired. The estimated ejection fraction is 45-50% There is mild basal and mid ventricular posterior wall hypokinesis. Transmitral Doppler flow pattern is Grade II-pseudonormal filling dynamics. No left ventricle thrombus noted on this study. There is no ventricular septal defect visualized. There is no left ventricular aneurysm. There is no mass noted in the left ventricle. RIGHT VENTRICLE The right ventricle is normal size. There is normal right ventricular wall thickness. The right ventricular systolic function is normal. ATRIA The left atrium is mildly dilated. The right atrium size is normal. The interatrial septum is intact with no evidence for an atrial septal defect. AORTIC VALVE The aortic valve leaflets are moderately calcified. No aortic regurgitation is present. There is mild aortic valvular stenosis. Peak aortic velocity is 2.3 m/sec. There is no aortic valvular vegetation. MITRAL VALVE The mitral valve is normal in structure. There is no evidence of mitral valve prolapse. There is no mitral valve stenosis. There is no mitral valve regurgitation noted. TRICUSPID VALVE The tricuspid valve is normal in structure. There is mild tricuspid valve regurgitation noted. RVSP is calculated at 30 mm Hg. There is no tricuspid valve prolapse or vegetation. There is no tricuspid valve stenosis. PULMONIC VALVE The pulmonary valve is normal in structure. There is no pulmonic valvular regurgitation. There is no pulmonic valvular stenosis. GREAT VESSELS The aortic root is normal in size. The ascending aorta is normal in size. The pulmonary artery is normal. The IVC is normal in size and collapses >50% with inspiration. PERICARDIAL EFFUSION There is no pericardial effusion. There is no pleural effusion. <Conclusion> There is mild concentric left ventricular hypertrophy. The left ventricular systolic function is mildly impaired. The estimated ejection fraction is 45-50% Transmitral Doppler flow pattern is Grade II-pseudonormal filling dynamics. The left atrium is mildly dilated. There is mild aortic valvular stenosis. Peak aortic velocity is 2.3 m/sec. There is mild tricuspid valve regurgitation noted. RVSP is calculated at 30 mm Hg.
--- NOTE | 2018-03-26 16:00 | CP.CCUPN ---
CCU Subjective - Physician Review Subjective (Free Text): Remains comatose. Other vitals and I/O's reviewed. Febrile to 101.9F, SBPs 150- 170's, 68, breathing 18/18 on AC mode, no vent triggering noted. ROS: No other pertinent negs or positives on 10+ system review obtainable due to coma and intubated state. PMSFH: All other Nursing and physician documentation reviewed to date; no new pertinent info noted relevant to current medical problems. EXAM- HEENT: no icterus, no gaze preference, Pupils 2 mm bilat and not reactive, no gag or carinal reflex. Orally intubated #7.5mm ETT in place. NECK: No JVD visible, supple, carotids equal upstroke bilat/no bruit CHEST: bilateral rhonchi all jarrell, no wheezes audible HEART: regular, distant tachy S1S2, no rub, + 2/6 apical systolic m. ABD: soft, no focal tenderness, no guarding, no organomegaly, BS hypoactive. EXT: +3 edema, no calf tenderness or palpable cords, distal pulses intact and symmetrical. NEURO: flaccid x 4 extremities, GCS = 3T, opens eyes to pain stimuli and minimal withdrawal of hands to pain. No other purposeful interaction. SKIN: no rashes, cool and dry LABS: WBC= 8.3 HGB= 10.6 PLTs= 180K Na= 143 K= 4.1 PG=136 HCO3= 23 BUN/Cr= 33/2.5 BS= 157 7.46/31/239 Lactate= 2.0 CXR: ETT tip position ok above wilbur; increase in bilat (my interp). IMPRESSION / MAJOR PROBLEMS NOW: 1. S/p Resuscitation from Cardiac Arrest, on MV support: r/o AMI 2. Anoxic Encephalopathy post-resuscitation 3. Bilateral Aspiration PNA 4. Azotemia / Dehydration, r/o CKD, ATN PLAN: 1. Decrease FiO2. No MV weans contemplated at this time with comatose state. 2. Repeat CT Brain, Neurology eval. 3. Consider Cardio eval. 4. Empiric abx coverage 5. Fevers may be of central / [employer] etiology.
[2018-03-27] MEDS: Acetaminophen 650mg/20.3ml solution UD PO PRN ×3 (00:13→22:01)
[2018-03-27 04:14] LABS: ABG ALLEN TEST YES; ARTERIAL BLOOD GAS HCO3 25.6 mmol/L (21-28); ARTERIAL BLOOD GAS HEMOGLOBIN 11.1 g/dL (11.7-17.4); ARTERIAL BLOOD GAS O2 CAPACITY 15.6 mL/dL (16-24); ARTERIAL BLOOD GAS O2 CONTENT 15.6 ML/dL (15-23); ARTERIAL BLOOD GAS PCO2 29 mm/Hg (35-45); ARTERIAL BLOOD GAS PH 7.51 (7.35-7.45); ARTERIAL BLOOD GAS PO2 212 mm/Hg (80-100)
[2018-03-27 06:42] LABS: HEMOGLOBIN 10.7 g/dL (12.0-18.0); MEAN CELL VOLUME 82.9 fl (80.0-94.0); MEAN CORPUSCULAR HGB CONC 31.4 g/dL (33.0-37.0); RBC 4.12 Mil/uL (4.40-5.90); RED CELL DISTRIBUTION WIDTH 16.1 % (11.5-14.5); WHITE BLOOD COUNT 8.7 K/uL (4.8-10.8)
[2018-03-27 06:55] LABS: CALCIUM 8.6 mg/dL (8.4-10.2)
--- NOTE | 2018-03-27 13:11 | PN ---
DATE: 03/27/2018 SUBJECTIVE: The patient seen and examined. Interim events noted. Consults noted and appreciated. The patient remains in intensive care unit, on ventilator, not able to provide informative history or review systems. The patient remains comatose. PHYSICAL EXAMINATION: GENERAL: The patient is orally intubated, on mechanical ventilation via endotracheal tube, tolerating current ventilation without any acute respiratory distress. The patient is comatose except blinking eyes. VITAL SIGNS: Temperature afebrile, pulse 80, respirations 18, blood pressure 170/90. HEENT: Pupils are not reacting, but the patient is blinking eyes. HEART: S1 and S2, normal and regular. LUNGS: Good bilateral air exchange. ABDOMEN: Soft and nontender. EXTREMITIES: No calf swelling. No tenderness. No acute ischemia. CENTRAL NERVOUS SYSTEM: Essentially unchanged. DIAGNOSTIC DATA: Available diagnostic data reviewed. Telemetry monitoring does not reveal significant arrhythmias. ASSESSMENT AND PLAN: Overall, the patient's general medical condition is critical. Long-term prognosis remains poor. The patient remains essentially comatose. Plan as ordered. Mario Carrion MD
--- NOTE | 2018-03-27 16:52 | RAD ---
Date of service: 03/27/2018 HISTORY: intubated COMPARISON: Yesterday FINDINGS: LUNGS: Persistent bilateral infiltrates and edema are appreciated with mildly increased at the right lung base, although upper lobes are mildly improved. A portion of this may represent increased atelectasis endotracheal tube is just above the wilbur by 1-2 centimeters and and slightly extends towards the right. NG tube appears to be within the stomach. PLEURA: Small right effusion is not excluded. CARDIOVASCULAR: No aortic atherosclerotic calcification present. Heart is enlarged. Vasculature is minimally improved. OSSEOUS STRUCTURES: No significant abnormalities. VISUALIZED UPPER ABDOMEN: Normal. OTHER FINDINGS: None. IMPRESSION: Mild improvement in aeration in the upper lobes. Endotracheal tube just above the wilbur. There is however some mild increased density at the right lung base which may suggest some mild increased atelectasis. No pneumothorax.
--- NOTE | 2018-03-27 19:45 | PN ---
DATE: 03/27/2018 LOCATION: The patient in ICU bed 432. TIME SPENT: 45 minutes. The patient is seen and evaluated at the bedside. Past medical, surgical, family and social history reviewed. Events since admission reviewed. SUBJECTIVE: An 82-year-old male with history significant for hypertension, asthma, coronary artery disease and dementia, was walking outside home with the patient's , reportedly collapsed, became unresponsive. ACLS was initiated, brought to emergency room, resuscitated after a long period of resuscitation. Admitted to ICU, remains intubated, not responsive to verbal commands or tactile stimuli. On AC/PRVC rate 14, tidal volume 450, PEEP 5, FIO2 of 40%, observed rate 23, exhaled tidal volume 450 mL, minute ventilation 10.4 L, saturation 100%, peak airway pressure 24, end-tidal CO2 25, no sedation. No seizure activity noted. PHYSICAL EXAMINATION: Vital signs: Temperature 101.4, heart rate 82, blood pressure 166/72. Intake 2550, output 1600, positive balance 950. Weight 153 pounds. HEAD, EYES, EARS, NOSE AND THROAT: Pupils are 3 mm reactive. NECK: Supple. Endotracheal tube in place. No secretion noted. CHEST: Bilateral breath sounds diminished in intensity. Clear to auscultation anteriorly and laterally. HEART: Rhythm regular. S1, S2 normal intensity. No S3, S4 gallop. No audible murmur. ABDOMEN: Bowel sounds present and soft. Liver and spleen not palpable. Bladder not distended. Rocha in place draining clear urine. EXTREMITIES: Without edema. NEUROLOGIC: Remains unresponsive to verbal or tactile stimuli. Questionable grimacing to pain. CURRENT MEDICATIONS: Tylenol 650 every four p.r.n., amiodarone 200 mg p.o. daily, Norvasc 10 mg p.o. daily, Plavix 75 mg p.o. daily, Pepcid 20 mg IV every 12 hours, hydralazine 20 mg IV every 6 p.r.n., Imdur 60 mg p.o. daily, Cozaar 100 mg p.o. daily, metoprolol 50 mg p.o. every 12 hours, Zosyn 2.25 gm IV every 8 hours. LABORATORY DATA: WBC 8.7, hemoglobin 10.7, hematocrit 34.2, platelet count 162. PT 15.5, INR 1.4, PTT 31.4. ABG, pH 7.51, pCO2 29, PO2 212, oxygen saturation 100%. SMA-7; sodium 146, potassium 3.8, chloride 113, CO2 24, blood urea nitrogen 31, creatinine 2.7, random glucose 170. Microbiology; urine culture no growth reported. Blood culture no growth reported. Sputum culture no growth reported. Nasal smear, MRSA negative. Chest x-ray, endotracheal tube in place. No pneumothorax, bilateral haziness more on the right than left. Electrocardiogram normal sinus rhythm, sinus arrhythmia, LVH, ST-T wave abnormality, question lateral ischemia. 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 Echocardiogram, mild concentric left ventricular hypertrophy, left ventricular systolic function is mildly impaired, estimated EF of 45-50%, left atrium is mildly dilated, there is mild aortic valve stenosis, peak aortic velocity second, mild tricuspid valve regurgitation. IMPRESSION AND PLAN: 1. Neurologic: Status post cardiopulmonary resuscitation from cardiac arrest, suspected anoxic brain injury. History of asthma and coronary artery disease. 2. Pulmonary: Status post resuscitation, intubated not weanable given his mental status, history of asthma. We will continue with bronchodilator every 6 hours. 3. Cardiac: Status post cardiac arrest. Initial rhythm unclear. Continue on amiodarone, Norvasc, Plavix, hydralazine, isosorbide, Lopressor, Cozaar. 4. Infectious disease: Chest x-ray shows bilateral haziness either pulmonary edema; however, superimposed aspiration pneumonia cannot be excluded, there is no leukocytosis. Initial sputum shows normal mary. Empirically on Zosyn 2.25 gm IV every 8 hours. 5. Hematology: No leukocytosis. Anemia of chronic disease, normal platelet counts. 6. Renal: Mild hypernatremia, maintain on IV hydration, supplement potassium. BUN and creatinine elevated either from from acute or chronic status post resuscitation with reduced perfusion. Closely monitor for further decline in renal function. 7. Gastrointestinal: Abnormal LFT related to possibly ischemic; however, other causes of LFT to be ruled out. 8. Endocrine: Maintain blood sugar below 180 mg. Keep the head of bed 30 degrees up, DVT and GI prophylaxis. We will closely monitor mental status of the patient. Monitor for new seizure activity. Ramin Kaplan MD [facility] # [id number]
[2018-03-28 03:44] LABS: ABG ALLEN TEST YES; ARTERIAL BLOOD GAS HCO3 25.5 mmol/L (21-28); ARTERIAL BLOOD GAS HEMOGLOBIN 11.5 g/dL (11.7-17.4); ARTERIAL BLOOD GAS O2 CAPACITY 15.7 mL/dL (16-24); ARTERIAL BLOOD GAS O2 CONTENT 15.5 ML/dL (15-23); ARTERIAL BLOOD GAS O2 SAT 98.7 % (95-98); ARTERIAL BLOOD GAS PCO2 32 mm/Hg (35-45); ARTERIAL BLOOD GAS PH 7.48 (7.35-7.45); ARTERIAL BLOOD GAS PO2 93 mm/Hg (80-100); ARTERIAL BLOOD GAS TCO2 24.8 mmol/L (22-28)
[2018-03-28] MEDS ORDERED: Albuterol-Ipratrop 3 mg / 0.5 (3 ml) UD INH PRN (04:40)
[2018-03-28 07:07] LABS: HEMOGLOBIN 10.8 g/dL (12.0-18.0); MEAN CELL VOLUME 82.9 fl (80.0-94.0); MEAN CORPUSCULAR HEMOGLOBIN 26.1 pg (27.0-31.0); MEAN CORPUSCULAR HGB CONC 31.5 g/dL (33.0-37.0); RBC 4.13 Mil/uL (4.40-5.90); RED CELL DISTRIBUTION WIDTH 16.2 % (11.5-14.5); WHITE BLOOD COUNT 8.4 K/uL (4.8-10.8)
[2018-03-28 07:39] LABS: ALB/GLOB RATIO 0.9 (1.0-2.1); ALBUMIN 3.2 g/dL (3.5-5.0); CALCIUM 8.5 mg/dL (8.4-10.2)
--- NOTE | 2018-03-28 07:49 | PN ---
DATE: 03/28/2018 SUBJECTIVE: The patient is seen and examined. Interim events noted. Consults noted and appreciated. The patient remains in intensive care unit, on quality assurance monitor body, not able to provide intermittent history and review of systems. High blood pressure reported by nursing staff. event. PHYSICAL EXAMINATION: GENERAL: The patient is orally intubated, on mechanical ventilation via endotracheal tube, tolerating current setting without any acute respiratory distress, spontaneous blinking moment which were present yesterday is not present today. VITAL SIGNS: Stable. Blood pressure 180/90. HEENT: Pupils are not reacting. HEART: S1 and S2, normal and regular. LUNGS: Good bilateral air exchange. ABDOMEN: Soft and nontender. EXTREMITIES: No calf swelling. No tenderness. No acute ischemia. CENTRAL NERVOUS SYSTEM: Essentially unchanged. DIAGNOSTIC DATA: Available diagnostic data reviewed. Telemetry monitoring does not reveal any significant arrhythmias. ASSESSMENT AND PLAN: Overall, the patient's general medical condition is stable. Hemodynamically, blood pressure remains elevated. Long-term prognosis is guarded and poor. Plan as ordered. Mario Carrion MD
--- NOTE | 2018-03-28 08:48 | CP.CCUPN ---
CCU Subjective - Physician Review Subjective (Free Text): Patient seen and examined at bedside. Patient is intubated, not responsive, not on any sedation, flacid extremities 03/28/18 08:44 Critical Care Time Spent (in minutes): 35 CCU Objective - Vital Signs / Intake & Output Vital Signs (Last 4 hours): Vital Signs Pulse Resp BP Pulse Ox 03/28/18 08:08 67 147/69 03/28/18 08:07 67 147/69 03/28/18 06:16 60 192/90 H 03/28/18 06:00 61 24 192/90 H 100 03/28/18 05:00 60 17 182/90 H 100 Intake and Output (Last 8hrs): Intake & Output 03/27/18 03/28/18 03/28/18 22:59 06:59 14:59 Intake Total 800 800 50 Output Total 1650 750 125 Balance -850 50 -75 Weight 155 lb 1.6 oz Intake: Intake, Piggyback 100 Tube Feeding 400 400 50 Free Water Flush 300 400 Output: Urine 1650 750 125 Urethral (Rocha) 1650 750 125 Other: # Bowel Movements 0 1 - Physical Exam Head: Positive for: Atraumatic Pupils: Positive for: Non-Reactive Conjunctiva: Positive for: Normal Mouth: Positive for: Moist Mucous Membranes Neck: Positive for: Normal Range of Motion Respiratory/Chest: Positive for: Good Air Exchange. Negative for: Respiratory Distress, Accessory Muscle Use, Wheezes Cardiovascular: Positive for: Regular Rate and Rhythm, Murmurs, Normal S1, S2 Abdomen: Negative for: Tenderness, Peritoneal Signs, Guarding Upper Extremity: Positive for: Edema Lower Extremity: Positive for: Edema Neurological: Negative for: GCS=15, CN II-XII Intact, Speech Normal, Motor Func Grossly Intact, Normal Sensory Function, Normal Cerebellar Funct, Norm Deep Tendon Reflexes, Gait Normal, Memory Normal, Normal 2Pt Descrimination Skin: Positive for: Normal Color Psychiatric: Negative for: Alert, Oriented x 3 - Medications Active Medications: Active Medications Generic Name Dose Route Start Last Admin Trade Name Freq PRN Reason Stop Dose Admin Acetaminophen 650 mg 03/25/18 22:02 03/27/18 22:01 Tylenol 650mg/20.3ml Solution Ud PO 650 mg Q4 PRN Administration Temperature Albuterol/Ipratropium 3 ml 03/28/18 04:40 Duoneb 3 Mg/0.5 Mg (3 Ml) Ud INH RQ6 PRN SOB, wheezing, congestion Amiodarone HCl 200 mg 03/26/18 09:00 03/28/18 08:07 Cordarone PO 200 mg DAILY YURIY Administration Amlodipine Besylate 10 mg 03/27/18 09:00 03/28/18 08:08 Norvasc PO 10 mg DAILY YURIY Administration Clopidogrel Bisulfate 75 mg 03/25/18 15:30 03/28/18 08:08 Plavix PO 75 mg DAILY YURIY Administration Famotidine 20 mg 03/25/18 21:00 03/28/18 08:10 Pepcid IVP 20 mg Q12 YURIY Administration Hydralazine HCl 20 mg 03/27/18 11:42 03/28/18 06:16 Apresoline IV 20 mg Q6 PRN Administration Systolic Blood Pressure Piperacillin Sod/Tazobactam 100 mls @ 100 mls/hr 03/25/18 17:00 03/28/18 08:08 Sod 2.25 gm/ Sodium Chloride IVPB 100 mls/hr Q8 YURIY Administration Protocol Isosorbide Mononitrate 60 mg 03/25/18 15:30 03/28/18 08:08 Imdur PO 60 mg DAILY YURIY Administration Losartan Potassium 100 mg 03/25/18 15:30 03/28/18 08:07 Cozaar PO 100 mg DAILY YURIY Administration Metoprolol Tartrate 50 mg 03/25/18 21:00 03/28/18 08:08 Lopressor PO 50 mg Q12 YURIY Administration - Patient Studies Lab Studies: Microbiology Studies 03/25/18 13:00 Blood Culture - Preliminary Blood-Thru Central Line NO GROWTH AFTER 48 HOURS 03/25/18 12:45 Blood Culture - Preliminary Blood NO GROWTH AFTER 48 HOURS 03/25/18 05:42 MRSA Culture (Admit) - Final Nose MRSA NOT DETECTED 03/25/18 14:00 Urine Culture - Final Urine,Rocha No Growth (<1,000 CFU/ML) 03/25/18 06:00 Gram Stain - Final Trachasp Sputum Culture - Preliminary No growth. Lab Studies 03/28/18 03/28/18 03/28/18 Range/Units 05:30 05:30 04:00 WBC 8.4 (4.8-10.8) K/uL RBC 4.13 L (4.40-5.90) Mil/uL Hgb 10.8 L (12.0-18.0) g/dL Hct 34.3 L (35.0-51.0) % MCV 82.9 (80.0-94.0) fl MCH 26.1 L (27.0-31.0) pg MCHC 31.5 L (33.0-37.0) g/dL RDW 16.2 H (11.5-14.5) % Plt Count 185 (130-400) K/uL pCO2 32 L (35-45) mm/Hg pO2 93 (80-100) mm/Hg HCO3 25.5 (21-28) mmol/L ABG pH 7.48 H (7.35-7.45) ABG Total CO2 24.8 (22-28) mmol/L ABG O2 Saturation 98.7 H (95-98) % ABG O2 Content 15.5 (15-23) ML/dL ABG Base Excess 0.8 (-2.0-3.0) mmol/L ABG Hemoglobin 11.5 L (11.7-17.4) g/dL ABG Carboxyhemoglobin 2.1 H (0.5-1.5) % POC ABG HHb (Measured) 1.3 (0.0-5.0) % ABG Methemoglobin 1.5 (0.0-3.0) % ABG O2 Capacity 15.7 L (16-24) mL/dL Shahram Test Yes A-a O2 Difference 152.0 mm/Hg Hgb O2 Saturation 95.1 (95.0-98.0) % Vent Mode A/c Mechanical Rate 14 FiO2 40.0 % Tidal Volume 450 PEEP 5 Sodium 146 (132-148) mmol/l Potassium 3.8 (3.6-5.0) MMOL/L Chloride 113 H (98-107) mmol/L Carbon Dioxide 25 (22-30) mmol/L Anion Gap 12 (10-20) BUN 29 H (9-20) mg/dl Creatinine 2.2 H (0.8-1.5) mg/dl Est GFR ( Amer) 35 Est GFR (Non-Af Amer) 29 Random Glucose 151 H (75-110) mg/dL Calcium 8.5 (8.4-10.2) mg/dL Phosphorus 3.9 (2.5-4.5) mg/dl Magnesium 2.2 (1.6-2.3) MG/DL Total Bilirubin 0.9 (0.2-1.3) mg/dl AST 121 H D (17-59) U/L ALT 63 (21-72) U/L Alkaline Phosphatase 162 H D (38-126) U/L Total Protein 6.9 (6.3-8.2) G/DL Albumin 3.2 L (3.5-5.0) g/dL Globulin 3.6 (2.2-3.9) gm/dL Albumin/Globulin Ratio 0.9 L (1.0-2.1) Laboratory Results - last 24 hr 03/28/18 03/28/18 03/28/18 04:00 05:30 05:30 WBC 8.4 RBC 4.13 L Hgb 10.8 L Hct 34.3 L MCV 82.9 MCH 26.1 L MCHC 31.5 L RDW 16.2 H Plt Count 185 pCO2 32 L pO2 93 HCO3 25.5 ABG pH 7.48 H ABG Total CO2 24.8 ABG O2 Saturation 98.7 H ABG O2 Content 15.5 ABG Base Excess 0.8 ABG Hemoglobin 11.5 L ABG Carboxyhemoglobin 2.1 H POC ABG HHb (Measured) 1.3 ABG Methemoglobin 1.5 ABG O2 Capacity 15.7 L Shahram Test Yes A-a O2 Difference 152.0 Hgb O2 Saturation 95.1 Vent Mode A/c Mechanical Rate 14 FiO2 40.0 Tidal Volume 450 PEEP 5 Sodium 146 Potassium 3.8 Chloride 113 H Carbon Dioxide 25 Anion Gap 12 BUN 29 H Creatinine 2.2 H Est GFR ( Amer) 35 Est GFR (Non-Af Amer) 29 Random Glucose 151 H Calcium 8.5 Phosphorus 3.9 Magnesium 2.2 Total Bilirubin 0.9 AST 121 H D ALT 63 Alkaline Phosphatase 162 H D Total Protein 6.9 Albumin 3.2 L Globulin 3.6 Albumin/Globulin Ratio 0.9 L Fingerstick Blood Sugar Results: 176 Review of Systems - Review of Systems Systems not reviewed;Unavailable: Intubated Assessment/Plan - Assessment and Plan (Free Text) Assessment: Anoxic brain injury: poor prognosis, consider EEG and repeat CT head, neurology input regarding further prognostication -Hypoxic respiratory failure:contine ventilation to keep spo2 >92 and pH b/w 7.35-7.45, not a cadidate fro CPAP or extuabtion -s/p Cardiac arrest:continue treatment as per unruly -contine ng tube feeds -BGm q6hrs, ISS lispro -continue dvt/pud ppx -Goals of care: will benefit from family meeting and determien goals of care -possible offer early trach/peg -prognosis very poor 2nd severe anoxic brain injury cc tie 35 minutes - Date & Time Date: 03/28/18 Time: 08:48
--- NOTE | 2018-03-28 09:13 | RAD ---
Date of service: 03/28/2018 PROCEDURE: CHEST RADIOGRAPH, 1 VIEW HISTORY: Pt has an ETT; daily tube placement confirmation COMPARISON: None available. FINDINGS: LUNGS: Endotracheal tube is unchanged in position. NG tube is noted with its tip in the GE junction. This should be advanced. There is interval improvement in aeration in the right lower lobe region. Mild persistent infiltrates or interstitial change are noted. Small right effusion is also once again suspected. PLEURA: See above. CARDIOVASCULAR: No aortic atherosclerotic calcification present. Enlarged. Vasculature is stable. OSSEOUS STRUCTURES: No significant abnormalities. VISUALIZED UPPER ABDOMEN: Normal. OTHER FINDINGS: None. IMPRESSION: Mild interval improvement aeration at the right lung base. NG tube tip at the GE junction. This should be advanced. Report will be placed into the critical yellow result folder.
--- NOTE | 2018-03-28 12:10 | CT ---
Date of service: 03/28/2018 PROCEDURE: CT HEAD WITHOUT CONTRAST. HISTORY: AMS COMPARISON: 03/25/2018 TECHNIQUE: Axial computed tomography images were obtained through the head/brain without intravenous contrast. Radiation dose: Total exam DLP = 811.04 mGy-cm. This CT exam was performed using one or more of the following dose reduction techniques: Automated exposure control, adjustment of the mA and/or kV according to patient size, and/or use of iterative reconstruction technique. FINDINGS: HEMORRHAGE: No appreciable new intracranial hemorrhage is identified. BRAIN: There are moderate new areas of decreased density identified in the cerebellar hemispheres when compared to the prior exam. There also additionally new areas of cortical effacement involving the right frontal and parietal cerebral hemisphere as well as new areas of decreased density within the basal ganglia and internal capsule region on the right and to a lesser degree on the left. There appears to be areas of increased density within the transverse and sagittal sinus regions, although it is uncertain as to whether this reflects the areas of previously described decreased density. The increased density may suggest slow moving higher density blood products. No delta sign is seen to suggest thrombus. Overall findings suggest multiple new areas of recent infarct or anoxia. Stable chronic infarcts are seen in the left cerebral hemisphere and thalami on the left. VENTRICLES: Fourth ventricle is somewhat smaller in size than on prior study which may suggest some mass effect and edema from the low-density probable recent cerebellar infarcts. CALVARIUM: Unremarkable. PARANASAL SINUSES: Unchanged. MASTOID AIR CELLS: Unremarkable as visualized. No inflammatory changes. OTHER FINDINGS: None. IMPRESSION: Moderate new areas of decreased density and cortical effacement in the bilateral cerebellar hemispheres and additionally right cerebral hemisphere suggesting areas of moderate recent infarct or severe anoxia. No appreciable intracranial hemorrhage. Probable secondary increased density within the transverse and sagittal sinuses a portion which may be related to higher density blood without thrombus clearly seen. ICU nurse taking care of this patient was notified. Case was placed into the critical red folder.
--- NOTE | 2018-03-28 12:26 | CP.PCM.CON ---
History of Present Illness - History of Present Illness History of Present Illness: Neurology Consultation Note: Mr. Zamora is an 82-year-old man with a past medical history of HTN, dementia, CAD and asthma, cardiac arrhythmia, who had cardiac arrest and required multiple rounds of epi, atropine, until resuscitated. He continued to be unresponsive. Was intubated. Currently, not on any sedation. CT scan of the head showed multiple bilateral infarcts and diffuse ischemic injury. Review of Systems - Review of Systems Systems not reviewed;Unavailable: Intubated Past Patient History - Past Social History Smoking Status: Former Smoker - CARDIAC Hx Hypertension: Yes - PULMONARY Hx Asthma: Yes - NEUROLOGICAL Hx Neurological Disorder: Yes - HEENT Hx HEENT Problems: No - RENAL Hx Chronic Kidney Disease: No - ENDOCRINE/METABOLIC Hx Endocrine Disorders: No - HEMATOLOGICAL/ONCOLOGICAL Hx Blood Disorders: No Hx AIDS: No Hx Human Immunodeficiency Virus (HIV): No - INTEGUMENTARY Hx Dermatological Problems: No - MUSCULOSKELETAL/RHEUMATOLOGICAL Hx Musculoskeletal Disorders: No Hx Falls: No - GASTROINTESTINAL Hx Gastritis: Yes - GENITOURINARY/GYNECOLOGICAL Hx Genitourinary Disorders: No - PSYCHIATRIC Hx Psychophysiologic Disorder: No Hx Substance Use: No - SURGICAL HISTORY Hx Surgeries: No - ANESTHESIA Hx Anesthesia: No Meds Allergies/Adverse Reactions: Allergies Allergy/AdvReac Type Severity Reaction Status Date / Time No Known Allergies Allergy Verified 03/25/18 15:10 - Medications Medications: Current Medications Acetaminophen (Tylenol 650mg/20.3ml Solution Ud) 650 mg PO Q4 PRN PRN Reason: Temperature Last Admin: 03/27/18 22:01 Dose: 650 mg Albuterol/Ipratropium (Duoneb 3 Mg/0.5 Mg (3 Ml) Ud) 3 ml INH RQ6 PRN PRN Reason: SOB, wheezing, congestion Amiodarone HCl (Cordarone) 200 mg PO DAILY [facility] Last Admin: 03/28/18 08:07 Dose: 200 mg Amlodipine Besylate (Norvasc) 10 mg PO DAILY [facility] Last Admin: 03/28/18 08:08 Dose: 10 mg Clopidogrel Bisulfate (Plavix) 75 mg PO DAILY [facility] Last Admin: 03/28/18 08:08 Dose: 75 mg Famotidine (Pepcid) 20 mg IVP Q12 [facility] Last Admin: 03/28/18 08:10 Dose: 20 mg Hydralazine HCl (Apresoline) 20 mg IV Q6 PRN PRN Reason: Systolic Blood Pressure Last Admin: 03/28/18 06:16 Dose: 20 mg Piperacillin Sod/Tazobactam (Sod 2.25 gm/ Sodium Chloride) 100 mls @ 100 mls/hr IVPB Q8 [facility]; Protocol Last Admin: 03/28/18 08:08 Dose: 100 mls/hr Isosorbide Mononitrate (Imdur) 60 mg PO DAILY [facility] Last Admin: 03/28/18 08:08 Dose: 60 mg Losartan Potassium (Cozaar) 100 mg PO DAILY [facility] Last Admin: 03/28/18 08:07 Dose: 100 mg Metoprolol Tartrate (Lopressor) 50 mg PO Q12 [facility] Last Admin: 03/28/18 08:08 Dose: 50 mg Physical Exam - Neurological Exam Additional comments: Intubated. Off sedation. Opens eyes only to pain. No movement in extremities to pain. Breathing over the vent. Pupils sluggish response. GCS= 5T Results - Vital Signs Recent Vital Signs: Last Vital Signs Temp 98.1 F 03/28/18 12:00 Pulse 57 L 03/28/18 12:00 Resp 17 03/28/18 12:00 BP 153/77 H 03/28/18 12:00 Pulse Ox 100 03/28/18 12:00 - Labs Result Diagrams: 03/28/18 05:30 03/28/18 05:30 Labs: Laboratory Results - last 24 hr 03/28/18 03/28/18 03/28/18 04:00 05:30 05:30 WBC 8.4 RBC 4.13 L Hgb 10.8 L Hct 34.3 L MCV 82.9 MCH 26.1 L MCHC 31.5 L RDW 16.2 H Plt Count 185 pCO2 32 L pO2 93 HCO3 25.5 ABG pH 7.48 H ABG Total CO2 24.8 ABG O2 Saturation 98.7 H ABG O2 Content 15.5 ABG Base Excess 0.8 ABG Hemoglobin 11.5 L ABG Carboxyhemoglobin 2.1 H POC ABG HHb (Measured) 1.3 ABG Methemoglobin 1.5 ABG O2 Capacity 15.7 L Shahram Test Yes A-a O2 Difference 152.0 Hgb O2 Saturation 95.1 Vent Mode A/c Mechanical Rate 14 FiO2 40.0 Tidal Volume 450 PEEP 5 Sodium 146 Potassium 3.8 Chloride 113 H Carbon Dioxide 25 Anion Gap 12 BUN 29 H Creatinine 2.2 H Est GFR ( Amer) 35 Est GFR (Non-Af Amer) 29 Random Glucose 151 H Calcium 8.5 Phosphorus 3.9 Magnesium 2.2 Total Bilirubin 0.9 AST 121 H D ALT 63 Alkaline Phosphatase 162 H D Total Protein 6.9 Albumin 3.2 L Globulin 3.6 Albumin/Globulin Ratio 0.9 L Assessment & Plan (1) Anoxic brain injury Assessment and Plan: Appears to be severe based on CT head and current clinical condition. Very poor prognosis with no real hope of meaningful recovery. Will discuss with family. 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 May give aspirin SD, but unlikely to change outcome. Status: Acute (3) Cardiac arrest Status: Resolved
[2018-03-29 05:41] LABS: BASO % 0.2 % (0.0-2.0); EOS % 0.1 % (0.0-4.0); HEMOGLOBIN 10.3 g/dL (12.0-18.0); LYMPH % 13.5 % (20.0-40.0); MEAN CELL VOLUME 82.8 fl (80.0-94.0); MEAN CORPUSCULAR HEMOGLOBIN 26.1 pg (27.0-31.0); MEAN CORPUSCULAR HGB CONC 31.5 g/dL (33.0-37.0); MEAN PLATELET VOLUME 8.9 fl (7.2-11.7); MONO # 0.5 K/uL (0.0-0.8); MONO % 7.1 % (0.0-10.0); NEUT # 5.7 K/uL (1.8-7.0); NEUT % 79.1 % (50.0-75.0); NRBC % 0.1 % (0.0-0.0); RBC 3.96 Mil/uL (4.40-5.90); RED CELL DISTRIBUTION WIDTH 15.8 % (11.5-14.5); WHITE BLOOD COUNT 7.2 K/uL (4.8-10.8)
[2018-03-29 06:52] LABS: ALB/GLOB RATIO 0.9 (1.0-2.1); CALCIUM 8.5 mg/dL (8.4-10.2)
[2018-03-29 06:56] LABS: ABG ALLEN TEST YES; ARTERIAL BLOOD GAS HCO3 26.6 mmol/L (21-28); ARTERIAL BLOOD GAS PCO2 32 mm/Hg (35-45); ARTERIAL BLOOD GAS PO2 198 mm/Hg (80-100)
--- NOTE | 2018-03-30 01:04 | PN ---
DATE: 03/29/2018 LOCATION: The patient in ICU bed 432. TIME SPENT: 35 minutes. The patient is seen, evaluated at the bedside. Past medical, surgical, family and social history reviewed. Events since admission reviewed. SUBJECTIVE: An 82-year-old male history significant for hypertension, asthma, coronary artery disease and dementia was walking outside home with the patient's , reportedly collapsed, became unresponsive. ACLS was initiated, brought to emergency room, resuscitated after a long period of resuscitation. Admitted to ICU, remains intubated, no sedation. Not responsive to verbal commands or tactile stimuli. No response to painful stimuli, intubated, ventilated on AC/PRVC rate 14, tidal volume 450, PEEP of 5, FIO2 of 40%, saturation 100, peak airway pressure 19, end-tidal CO2 of 29, observed rate 17. PHYSICAL EXAMINATION: VITAL SIGNS: Temperature 98.3, heart rate 52 regular, blood pressure 155/76, mean arterial pressure 102, respiratory rate 17, saturation 100 on FIO2 of 40%. Intake 2050, output 1185, positive balance 865. Weight 154 pounds. HEAD, EYES, EARS, NOSE AND THROAT: Pupils midline. No gaze preference. No corneal reflex or conjunctival reflex. On deep suctioning, minimal response. CHEST: Bilateral breath sounds. Scattered rhonchi. HEART: Rhythm regular. S1, S2 normal. No audible murmur. ABDOMEN: Bowel sounds present. Soft. EXTREMITIES: Trace edema. DP palpable. No palpable cord. NEUROLOGIC: Minimal response to none on pain stimuli. Minimal gag reflex. Sluggishly reactive pupils. CURRENT MEDICATIONS Tylenol 650 every 4 hours p.r.n., amiodarone 200 mg p.o. daily, amlodipine 10 mg p.o. daily, Plavix 75 mg p.o. daily, Pepcid 20 mg p.o. every 12 hours, hydralazine 20 mg IV every 3 hours p.r.n., Imdur 60 mg p.o. daily, losartan 100 mg p.o. daily, Lopressor 50 mg p.o. every 12 hours. LABORATORY DATA: WBC 7.2, hemoglobin 10.3, hematocrit 32.8, platelet count 150, neutrophils 79.1, lymphocytes 13.5, monocytes 7.1. PT 15.5, INR 1.4, PTT 31.4. ABG; pH 7.50, pCO2 32, pO2 192, saturation 100%. On AC 14, 450, 40%, PEEP of 5. SMA-7; sodium 145, potassium 3.9, chloride 114, CO2 27, blood urea nitrogen 30, creatinine 2, random glucose 182, calcium 8.5, phosphorus 3.9, magnesium 2.2, total bilirubin of 0.7, AST 93, ALT 51, alkaline phosphatase 150, total protein 6.4, albumin 3. Urinalysis; rbc 15-60, wbc 122. Microbiology; urine culture no growth. Blood culture no growth. Nasal smear MRSA negative. Head CT done on 03/28/2018, no evidence of hemorrhage , moderate new areas of decreased density and cortical effacement in the bilateral cerebral hemispheres and additionally right cerebral hemisphere suggesting areas of moderate recent infarct or severe anoxia, no appreciable intracranial hemorrhage, probable secondary increased density within the transverse and sagittal sinuses related to higher density blood without thrombus clearly seen. Chest x-ray, mild interval improvement in aeration at the right lung base. NG tube GE junction. Enhancement new around the room home. IMPRESSION AND PLAN: 1. Neurologic: Status post cardiopulmonary resuscitation from cardiac arrest, suspected anoxic brain injury. History of asthma and coronary artery disease. No significant improvement in the mental status since admission. Minimal to no response to painful stimuli. Overdriving the vent over the set rate, no decorticate or decerebrate posturing noted. No seizure activity noted. 2. Pulmonary: Status post resuscitation, intubated and not weanable given his mental status. History of asthma, continue with the bronchodilator every 6 hours. 3. Cardiac: Status post cardiac arrest. Initial rhythm unclear. Continue on amiodarone, Norvasc, Plavix, hydralazine, isosorbide, Lopressor and Cozaar. 4. Infectious Disease: Chest x-ray shows bilateral haziness either pulmonary edema; however, superimposed aspiration pneumonia cannot be excluded. There is no leukocytosis. Initial sputum showed normal mary. Empirically on Zosyn 2.25 gm IV every 8 hours. 5. Hematology: No leukocytosis, anemia of chronic disease, normal platelet count. 6. Renal: Acute on chronic renal insufficiency, creatinine trending down. 7. Gastrointestinal: Abnormal LFT related to possibly ischemic; however, other causes of abnormal LFTs to be ruled out. 8. Endocrine: Maintain blood sugar below 180. 9. Keep the head of bed 30 degrees up. DVT and GI prophylaxis. 10. Closely monitor for seizure or any change in mental status. Ramin Kaplan MD
[2018-03-30 04:51] LABS: ABG ALLEN TEST YES; ARTERIAL BLOOD GAS HEMOGLOBIN 10.1 g/dL (11.7-17.4); ARTERIAL BLOOD GAS O2 CAPACITY 14.1 mL/dL (16-24); ARTERIAL BLOOD GAS O2 CONTENT 14.1 ML/dL (15-23); ARTERIAL BLOOD GAS O2 SAT 100.1 % (95-98); ARTERIAL BLOOD GAS PCO2 37 mm/Hg (35-45); ARTERIAL BLOOD GAS PH 7.48 (7.35-7.45); ARTERIAL BLOOD GAS PO2 154 mm/Hg (80-100); ARTERIAL BLOOD GAS TCO2 28.7 mmol/L (22-28)
[2018-03-30 05:20] LABS: HEMOGLOBIN 9.9 g/dL (12.0-18.0); MEAN CELL VOLUME 82.7 fl (80.0-94.0); MEAN CORPUSCULAR HEMOGLOBIN 26.4 pg (27.0-31.0); MEAN CORPUSCULAR HGB CONC 31.9 g/dL (33.0-37.0); RBC 3.74 Mil/uL (4.40-5.90); WHITE BLOOD COUNT 6.5 K/uL (4.8-10.8)
[2018-03-30 05:36] LABS: ALB/GLOB RATIO 0.9 (1.0-2.1); ALBUMIN 2.8 g/dL (3.5-5.0); CALCIUM 8.3 mg/dL (8.4-10.2)
--- NOTE | 2018-03-30 08:46 | RAD ---
Date of service: 03/30/2018 HISTORY: intubated COMPARISON: 03/28/2018 FINDINGS: Endotracheal tube terminates 3 cm proximal to the wilbur. The nasogastric tube terminates in the stomach. LUNGS: The lungs are well inflated. There is worsening consolidation in the right lower lobe. PLEURA: Suspect small right pleural effusion. No left pleural effusion or pneumothorax. CARDIOVASCULAR: Mild cardiomegaly. Atherosclerotic aortic arch calcifications are present. OSSEOUS STRUCTURES: Within normal limits for the patient's age. VISUALIZED UPPER ABDOMEN: Normal. OTHER FINDINGS: None. IMPRESSION: Worsening right lower lobe consolidation and pleural effusion.
[2018-03-30] MEDS ORDERED: Acetaminophen 650mg/20.3ml solution UD PO ONE (12:37)
--- NOTE | 2018-03-30 12:49 | PN ---
DATE: 03/30/2018 SUBJECTIVE: The patient seen and examined. Interim events noted. Consults noted and appreciated. The patient remains in intensive care unit, on mechanical ventilation, not able to provide informative history or review of system. PHYSICAL EXAMINATION: GENERAL: The patient is in no acute distress. VITAL SIGNS: Stable. HEART: S1 and S2, normal and regular. LUNGS: Good bilateral air exchange. ABDOMEN: Soft, nontender. EXTREMITIES: No edema. No calf swelling. No tenderness. No acute ischemia. CENTRAL NERVOUS SYSTEM: Exam is essentially unchanged and the patient remains comatose, on ventilator in intensive care unit. DIAGNOSTIC DATA: Available diagnostic data reviewed. Telemetry monitoring does not reveal significant arrhythmias. ASSESSMENT AND PLAN: Overall, the patient's general condition is essentially same. Long-term prognosis remains poor. The patient is essentially comatose. Plan as ordered. Case and plan discussed with pathology laboratory aide. Mario Carrion MD
--- NOTE | 2018-03-30 14:18 | CP.PCM.PN ---
Subjective - Date & Time of Evaluation Date of Evaluation: 03/30/18 Time of Evaluation: 14:14 - Subjective Subjective: Mr. Zamora was seen and examined today at bedside in the ICU. His family was present. I discussed with them the morbidity of the condition and the unlikely chance of any recovery. The family expressed the patient's premorbid wishes to not be on life support. Objective - Vital Signs/Intake and Output Vital Signs (last 24 hours): Temp Pulse Resp BP Pulse Ox 98.7 F 67 15 121/62 100 03/30/18 08:00 03/30/18 12:00 03/30/18 12:00 03/30/18 12:00 03/30/18 12:00 Intake and Output: 03/30/18 03/30/18 06:59 18:59 Intake Total 1177 Output Total 800 Balance 377 - Medications Medications: Current Medications Acetaminophen (Tylenol 650mg/20.3ml Solution Ud) 650 mg PO Q4 PRN PRN Reason: Temperature Last Admin: 03/27/18 22:01 Dose: 650 mg Albuterol/Ipratropium (Duoneb 3 Mg/0.5 Mg (3 Ml) Ud) 3 ml INH RQ6 PRN PRN Reason: SOB, wheezing, congestion Amiodarone HCl (Cordarone) 200 mg PO DAILY [facility] Last Admin: 03/30/18 10:42 Dose: 200 mg Amlodipine Besylate (Norvasc) 10 mg PO DAILY [facility] Last Admin: 03/30/18 10:44 Dose: 10 mg Clopidogrel Bisulfate (Plavix) 75 mg PO DAILY [facility] Last Admin: 03/30/18 10:44 Dose: 75 mg Famotidine (Pepcid) 20 mg PO Q12 [facility] Last Admin: 03/30/18 10:46 Dose: 20 mg Hydralazine HCl (Apresoline) 20 mg IV Q3H PRN PRN Reason: Systolic Blood Pressure Last Admin: 03/28/18 14:06 Dose: 20 mg Isosorbide Mononitrate (Imdur) 60 mg PO DAILY [facility] Last Admin: 03/30/18 10:43 Dose: 60 mg Losartan Potassium (Cozaar) 100 mg PO DAILY [facility] Last Admin: 03/30/18 10:42 Dose: 100 mg Metoprolol Tartrate (Lopressor) 50 mg PO Q12 [facility] Last Admin: 03/30/18 10:43 Dose: 50 mg - Labs Labs: 03/30/18 04:45 03/30/18 04:45 PT 15.5 Seconds (9.8-13.1) H 03/26/18 04:40 INR 1.4 03/26/18 04:40 APTT 31.4 Seconds (25.6-37.1) 03/26/18 04:40 - Neurological Exam Neuro motor strength exam: Left Upper Extremity: 0, Right Upper Extremity: 0, Left Lower Extremity: 0, Right Lower Extremity: 0 Additional comments: Only minimal brainstem function remains with sluggish pupils, no corneal, no gag, but breaths over the ventilator. No response to painful stimulus. GCS 3T Assessment and Plan (1) Anoxic brain injury Assessment & Plan: Unlikely to recover. Family decided to withdraw care. Status: Acute (2) Ischemic stroke Status: Acute (3) Cardiac arrest Status: Resolved
[2018-03-30 18:00] VITALS: TEMP 98.2
[2018-03-30 18:17] VITALS: O2SAT 91
--- NOTE | 2018-03-30 20:34 | PN ---
DATE: 03/30/2018 CRITICAL CARE PROGRESS NOTE LOCATION: ICU bed 432. TIME SPENT: 35 minutes. The patient is seen, evaluated at the bedside. Discussed with family at the bedside along with neurologist, Dr. Sanchez. Events since admission reviewed. SUBJECTIVE: An 82-year-old male with a history significant for hypertension, asthma, coronary artery disease, and dementia, was walking outside home with the patient's , reportedly collapsed, became unresponsive. ACLS was initiated, brought to emergency room, resuscitated after a long period of resuscitation. Admitted to ICU, remains intubated, no sedation. No response to verbal commands or tactile stimuli. No response to painful stimuli. Remains intubated, on AC/PRVC, rate of 14, tidal volume of 450, PEEP of 5, FiO2 of 40%, saturation 100%, mean airway pressure 10, respiratory rate 16 to 21. PHYSICAL EXAMINATION: VITAL SIGNS: Temperature 98.7, heart rate 91, blood pressure 148/71, respiratory rate 17, oxygen saturation 100%. Intake 2026, output 1405, balance 622. Weight 150 pounds. HEAD, EYES, EARS, NOSE AND THROAT: Pupils reactive. Conjunctivae pink. Sclerae anicteric. No gaze preference. Pupils midline, minimal to no response on deep suctioning. CHEST: Bilateral breath sounds. Clear to auscultation. HEART: Rhythm regular. S1 and S2 normal. No audible murmur. ABDOMEN: Bowel sounds present. Soft. EXTREMITIES: Trace edema. DP palpable. No palpable cord. CURRENT MEDICATIONS: Tylenol 650 every 4 hours p.r.n., DuoNeb 3 mL via nebulizer every 6 hours p.r.n., amiodarone 200 mg p.o. daily, Norvasc 10 mg p.o. daily, Plavix 75 mg p.o. daily, Pepcid 20 mg p.o. daily, hydralazine 20 mg IV every 3 hours p.r.n., Imdur 60 mg p.o. daily, Cozaar 100 mg p.o. daily, metoprolol 60 mg p.o. daily. LABORATORY DATA: WBC 6.5, hemoglobin 9.9, hematocrit 31, platelet count 148. ABG: The pH of 7.48, pCO2 of 37, pO2 of 154. On AC 14/450/40%, PEEP of 5. SMA-7: Sodium 146, potassium 4, chloride 114, CO2 of 28, blood urea nitrogen 36, creatinine 1.7, random glucose 156. Total bilirubin 0.5, AST 86, ALT 52, alkaline phosphatase 148, total protein 6.1, albumin 2.8. Urinalysis: Wbc's 122, rbc's 15-60. Microbiology: Urine culture, no growth. Blood culture, no growth. MRSA nasal smear negative. Chest x-ray done this morning, worsening right lower lobe consolidation and pleural effusion. IMPRESSION: An 82-year-old male with history significant for dementia, coronary artery disease, hypertension, and asthma. Admitted after a cardiac arrest, status post cardiopulmonary resuscitation, likely anoxic brain injury. The patient has no response to tactile or verbal or painful stimuli. Noted to have breathing suggesting that the patient has some brainstem reflexes. 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 Neurology discussed with the family and updated his conditions and lack of a meaningful recovery and to have a meaningful quality of life. The patient's family conversed with the same and the patient's premorbid wishes not to be on the ventilator. As per the family request, the patient is terminally extubated and placed on a nonrebreather. We will provide comfort care as needed to make the patient comfortable. Ramin Kaplan MD
[2018-03-31 04:42] VITALS: BP 141/68; PULSE 97; RESP 25
--- NOTE | 2018-03-31 05:17 | CP.PCM.PRO ---
Pronouncement of Note - Clinical Findings Physical Exam: No Response Verbal/Painful Stimuli, Absent Peripheral Puls es{Carotid & Femoral}, Absent Heart & Breath Sounds, No Pupillary Light Reflex, No Corneal Reflex, Pupils Fixed & Dilated, Absence of Vital Signs - Pronouncement Time Time of Pronouncement of : 05:00 - Notifications Pronouncement Notifications: Family Notified, Atending Notified Operators School Manager Notified: No - Autopsy Autopsy Requested: No [place] [id number] Additional Comments: This patient was DNR
== END 2018-03-31 04:50 | DRG 91 ==
LOC: H.ER 12:17 → H.ERHOLD 13:35 → H.ICU/CCU 14:27
PROVIDERS: ADMIT Internal Medicine; ATTEND Internal Medicine
PROC: 0BH17EZ Insertion of Endotracheal Airway into Trachea, Via Natural or Artificial Opening (ICD-10-PCS; principal; 2018-03-25)
PROC: 5A1955Z Respiratory Ventilation, Greater than 96 Consecutive Hours (ICD-10-PCS; 2018-03-25)
PROC: 06HM33Z Insertion of Infusion Device into Right Femoral Vein, Percutaneous Approach (ICD-10-PCS; 2018-03-25)
PROC: 3E02340 Introduction of Influenza Vaccine into Muscle, Percutaneous Approach (ICD-10-PCS; 2018-03-25)
DX: G93.1 Anoxic brain damage, not elsewhere classified (principal); J96.91 Respiratory failure, unspecified with hypoxia; J69.0 Pneumonitis due to inhalation of food and vomit; R40.20 Unspecified coma; I67.82 Cerebral ischemia; G93.40 Encephalopathy, unspecified; E87.0 Hyperosmolality and hypernatremia; E87.2 Acidosis; I12.9 Hypertensive chronic kidney disease with stage 1 through stage 4 chronic kidney disease, or unspecified chronic kidney disease; I25.10 Atherosclerotic heart disease of native coronary artery without angina pectoris; I46.9 Cardiac arrest, cause unspecified; J45.909 Unspecified asthma, uncomplicated; N18.9 Chronic kidney disease, unspecified; Z51.5 Encounter for palliative care; Z79.02 Long term (current) use of antithrombotics/antiplatelets; Z86.73 Personal history of transient ischemic attack (TIA), and cerebral infarction without residual deficits; Z87.891 Personal history of nicotine dependence; H26.9 Unspecified cataract; K29.70 Gastritis, unspecified, without bleeding; Z79.899 Other long term (current) drug therapy; I95.9 Hypotension, unspecified; R00.1 Bradycardia, unspecified; R94.5 Abnormal results of liver function studies; D63.8 Anemia in other chronic diseases classified elsewhere; F03.90 Unspecified dementia, unspecified severity, without behavioral disturbance, psychotic disturbance, mood disturbance, and anxiety; G25.3 Myoclonus; Z23 Encounter for immunization; E86.0 Dehydration